=== PATIENT | female | born 1945 | race Caucasian/White ===

== ENCOUNTER 2025-02-14 14:40 | Emergency (ER) | payer MEDICARE, OTHER | END 2025-02-14 17:21 | LOC: SUPCPDRO 14:40 → VM.ED 14:40 | DX: M54.50 Low back pain, unspecified (principal); M54.6 Pain in thoracic spine; W19.XXXA Unspecified fall, initial encounter | CPT/HCPCS: 72070; 72100; 99283; A9270 ==